=== PATIENT | female | born 1935 | race Caucasian/White ===

== ENCOUNTER 2016-11-01 22:39 | Emergency (ER) | payer OTHER, MEDICARE ==
[~2016-11-01] VITALS: Ht 160 cm; Wt 68.0 kg
--- NOTE | 2016-11-01 23:08 | ED CARDIAC/CP/PALPITATIONS ---
History of Present Illness General Chief Complaint: Dizziness Stated Complaint: DIZZINESS/SOB Source: patient Exam Limitations: no limitations Vital Signs & Intake/Output Vital Signs & Intake/Output Vital Signs Date Time Temp Pulse Resp B/P Pulse O2 O2 Flow FiO2 Ox Delivery Rate 11/01 2317 93 Room Air 11/01 2317 96.8 87 18 173/91 93 Room Air ED Intake and Output 11/02 0000 11/01 1200 Intake Total Output Total Balance Patient 150 lb Weight Allergies Coded Allergies: MDX - Codeine (UNKNOWN 03/16/12) Triage Note: PT TO ED FOR INTERMITTENT DIZZINESS AND PALPITATIONS AFTER HER EXERCISE CLASS LAST NIGHT AND AFTER DINNER TONIGHT. 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 DENIES ANY CP, NO SYNCOPE, HTN IN TRIAGE 203/. Triage Nurses Notes Reviewed? yes Onset: Gradual Duration: hour(s): Timing: recent history Location: "I felt extra heart beats in my neck." Radiation: neck Activities at Onset: none Prior Chest Pain/Card Workup: no prior chest pain HPI: 81 yo woman, h/o COPD, presents with episodes of dizziness. She notes, "On Friday, at exercise class, I bent over and when I stood up, I got dizzy.... 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 I bent over and felt a little dizzy and then it got better... I haven't been drinking as much the past few days and I take a diuretic... I felt some extra beats this evening." She notes no fever, chills, chest pain, shortness of breath, lower extremity edema. She is otherwise well. Past History Travel History Traveled to [place] past 21 day No Medical History Any Pertinent Medical History? 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 No Review of Systems Review of Systems Constitutional: Reports: no symptoms. EENTM: Reports: no symptoms. Respiratory: Reports: no symptoms. Cardiovascular: Reports: no symptoms. GI: Reports: no symptoms. Genitourinary: Reports: no symptoms. Musculoskeletal: Reports: no symptoms. Skin: Reports: no symptoms. Neurological/Psychological: Reports: no symptoms. Hematologic/Endocrine: Reports: no symptoms. Immunologic/Allergic: Reports: no symptoms. All Other Systems: Reviewed and Negative Physical Exam Physical Exam General Appearance: well developed/nourished, mild distress Head: atraumatic, normal appearance Eyes: Bilateral: normal appearance. Ears, Nose, Throat: normal pharynx, normal ENT inspection, hearing grossly normal Neck: normal inspection, supple, full range of motion Respiratory: normal breath sounds, chest non-tender, no respiratory distress, quiet respiration, lungs clear Cardiovascular: regular rate/rhythm Gastrointestinal: normal bowel sounds, soft, non-tender Back: normal inspection Extremities: normal inspection Neurologic/Psych: no motor/sensory deficits, awake, alert, oriented x 3 Skin: intact, normal color, warm/dry Core Measures ACS in differential dx? No Severe Sepsis Present: No Septic Shock Present: No Progress Differential Diagnosis: dehydration, PAC's, vaso vagal vs other. Plan of Care: Orders Procedure Date/time Status TROPONIN LEVEL 11/02 199 Complete EKG 11/02 199 Active Add-on Test (ER Only) 11/01 230 Active THYROID STIMULATING HORMONE 11/01 2257 Complete TROPONIN LEVEL 11/01 2250 Complete COMPREHENSIVE METABOLIC PANEL 11/01 2250 Complete CBC WITHOUT DIFFERENTIAL 11/01 2250 Complete EKG 11/01 2250 Active Laboratory Tests 11/02/16 0155: Troponin I < 0.01 11/01/162257: Anion Gap 12, Estimated GFR 53 L, BUN/Creatinine Ratio 18.0, Glucose 132 H, Calcium 10.5 H, Total Bilirubin 0.4, AST 25, ALT 24, Alkaline Phosphatase 67, Troponin I < 0.01, Total Protein 6.9, Albumin 3.9, Globulin 3.0, Albumin/ Globulin Ratio 1.3, TSH 3.010, CBC w Diff NO MAN DIFF REQ, RBC 4.91, MCV 87.5, MCH 29.5, RDW 14.2, MPV 8.2, Gran % 74.6, Lymphocytes % 16.4 L, Monocytes % 8.3 , Eosinophils % 0.2, Basophils % 0.5, Absolute Granulocytes 8.6 H, Absolute Lymphocytes 1.9, Absolute Monocytes 1.0 H, Absolute Eosinophils 0, Absolute Basophils 0.1, PUBS MCHC 33.7 Diagnostic Imaging: Viewed by Me: Radiology Read. Discussed w/RAD: Radiology Read. CXR Impression: no acute abnormality, no infiltrates, normal size heart, normal mediastinum Initial ED EKG: normal axis, normal intervals, normal p-waves, normal QRS complex, normal sinus rhythm, pac's noted Repeat EKG: unchanged Comments: PATIENT: MICHAEL PACE PRESENT AGE: 81 PATIENT ACCOUNT NO: [id number] : 36 LOCATION: [facility] ORDERING PHYSICIAN: THU MONK MD SERVICE DATE: 11/01/16 EXAM TYPE: RAD - XRY-PORTABLE CHEST XRAY EXAMINATION: XR PORTABLE CHEST CLINICAL INFORMATION: Syncope. Dizziness. COMPARISON: Chest x-ray 03/24/2014 TECHNIQUE: Portable view of the chest was obtained. 11:32 PM FINDINGS: There is hyperinflation of lungs. Lungs are clear. No pulmonary vascular congestion. No infiltrate or pleural effusion. The heart size is normal. The cardiac and mediastinal contours are normal. There are calcifications of the thoracic aorta. There are multilevel degenerative changes of dorsal spine. IMPRESSION: Unremarkable examination. DICTATED BY: ANGELIQUE ZAPATA MD DATE/TIME DICTATED:11/01/162347 TRIM OPERATOR:TAMARA DATE/TIME TRANSCRIBED:11/01/162347 CONFIDENTIAL, DO NOT COPY WITHOUT APPROPRIATE AUTHORIZATION. <Electronically signed in Other Vendor System> SIGNED BY: ANGELIQUE ZAPATA MD 11/01/16 [id number] Departure Departure Disposition: HOME OR SELF CARE Condition: Stable Clinical Impression Primary Impression: Palpitations Secondary Impressions: Dehydration, Dizziness Referrals: HENRY SYBIL BERRIOS (PCP/Family) Departure Forms: Customer Survey General Discharge Information Comments 11.02.16, 2:56am... pt is asymptomatic in the ED. She feels well throughout without chest pain. 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 Pt feels comfortable going home. Pt safe for discharge. trops neg x 2, ekg stable x 2 Critical Care Note Critical Care Note Critical Care Time: non-applicable ED Attending Observation Initial Observation Note: I have seen and personally examined SANJEEVMICHAEL Abbey on 11/02/16 at 0139. I agree with the current emergency department documentation. The disposition (admission or discharge) is uncertain at this time, she needs a period of observation for the following reason(s): The ED Nurse caring for this patient has been personally informed as to what the patient is being observed for.
[2016-11-01 23:18] LABS: ABSOLUTE BASOPHIL COUNT 0.1 /CUMM (0.0-0.2); ABSOLUTE EOSINOPHIL COUNT 0 /CUMM (0.0-0.7); ABSOLUTE GRANULOCYTE CT 8.6 /CUMM (1.4-6.5); ABSOLUTE LYMPH COUNT 1.9 /CUMM (1.2-3.4); BASOPHIL % 0.5 % (0.0-2.0); EOSINOPHIL % 0.2 % (0-5); GRANULOCYTE % 74.6 % (42.2-75.2); HEMATOCRIT 42.9 % (37-47); MEAN CORPUSCULAR HGB 29.5 PG (27.0-31.0); MEAN CORPUSCULAR HGB CONC 33.7 G/DL (33.0-37.0); MEAN CORPUSCULAR VOLUME 87.5 FL (81.0-99.0); MEAN PLATELET VOLUME 8.2 FL (7.4-10.4); PLATELET COUNT 234 /CUMM (130-400); RBC DISTRIBUTION WIDTH 14.2 % (11.5-14.5); RED BLOOD CELL CT 4.91 /CUMM (4.20-5.40); WHITE BLOOD CELL COUNT 11.6 /CUMM (4.8-10.8)
--- NOTE | 2016-11-01 23:53 | RADIOLOGY REPORT ---
EXAMINATION: XR PORTABLE CHEST CLINICAL INFORMATION: Syncope. Dizziness. COMPARISON: Chest x-ray 03/24/2014 TECHNIQUE: Portable view of the chest was obtained. 11:32 PM FINDINGS: There is hyperinflation of lungs. Lungs are clear. No pulmonary vascular congestion. No infiltrate or pleural effusion. The heart size is normal. The cardiac and mediastinal contours are normal. There are calcifications of the thoracic aorta. There are multilevel degenerative changes of dorsal spine. IMPRESSION: Unremarkable examination.
[2016-11-02 03:02] VITALS: BP 162/89
== END 2016-11-02 03:02 ==
LOC: ERH 22:39
PROVIDERS: Emergency Medicine
DX: R00.2 Palpitations (principal); E86.0 Dehydration; R42 Dizziness and giddiness
CPT/HCPCS: 93005; 93010